=== PATIENT | male | born 1950 | race Caucasian/White ===

== ENCOUNTER → 2019-05-24 | Outpatient (CLI) | payer MEDICARE, OTHER ==
--- NOTE | 2019-05-24 14:08 | Diagnostic Imaging Report ---
INDICATION: Bilateral wrist pain. Status post carpal tunnel surgery 10 years ago. TECHNIQUE: 2 views of the bilateral wrists CORRELATION STUDY: None FINDINGS: No acute bony abnormality or dixie dislocation of either wrist. There is rather advanced degenerative changes through the bilateral wrists. This includes narrowing at the radial carpal row right greater than left. There is also slight prominent appearance about the scaphoid lunate interval of the right wrist. Ossification at the level of the triangular fibrocartilage complex is noted bilaterally. There also appears to be ununited ulnar styloid process fracture of the left wrist. There is narrowing through the scaphoid, trapezium and trapezoid articulations. There is significant degenerative change of the first carpometacarpal articulation joint space narrowing, marginal osteophyte formation and spurlike formation. Slight radial subluxation of the first metacarpal. These findings maybe slightly greater on the left compared to the right. Some soft tissue swelling present. IMPRESSION: 1. Negative examination of the wrist. 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 Dictated by: Dictated on workstation # [id number]
== END ==
LOC: RAD FS 10:13
PROVIDERS: ATTEND Nurse Practitioner
DX: M19.031 Primary osteoarthritis, right wrist (principal); M19.032 Primary osteoarthritis, left wrist; Z98.890 Other specified postprocedural states

== ENCOUNTER → 2019-06-28 | Outpatient (CLI) | payer MEDICARE, OTHER ==
--- NOTE | 2019-06-28 16:56 | Diagnostic Imaging Report ---
INDICATION: Constipation, pain. COMPARISON: None available. TECHNIQUE: Three radiographs of the abdomen dated June 28, 2019. FINDINGS: Pacer leads are partially visualized. Moderate amount of stool is noted throughout the colon, including extending into the rectal vault. No dilated loops of small bowel. No differential air-fluid levels. No free air. 1.4 cm calcification seen overlying the inferior pole of the left kidney. Additional calcific densities are noted overlying the lateral left mid abdomen, lateral to the left renal shadow. Scattered osseous degenerative changes without acute osseous abnormality. IMPRESSION: Moderate stool throughout the colon, which may relate to constipation. 1.4 cm calcification overlying the left renal shadow favored to relate to a renal calculus. Additional calcifications overlying the left mid abdomen which may relate to enteric contents versus vascular calcifications. Dictated by: Dictated on workstation # [id number]
== END ==
LOC: RAD FS 16:34
PROVIDERS: ATTEND Nurse Practitioner Family
DX: K59.09 Other constipation (principal); R10.9 Unspecified abdominal pain
CPT/HCPCS: 74018

== ENCOUNTER → 2019-11-12 | Outpatient (CLI) | payer MEDICARE, OTHER ==
--- NOTE | 2019-11-12 18:07 | Diagnostic Imaging Report ---
INDICATION: Foot pain. FINDINGS: Swelling and some subcutaneous edema about the forefoot are present. No radiopaque foreign body. No abnormal periosteal reaction. No fracture or dislocation. There is a large plantar calcaneal spur. IMPRESSION: Some plantar soft tissue swelling and likely subcutaneous edema. Plantar calcaneal spurring. No acute bony abnormality. Dictated by: Dictated on workstation # [id number]
== END ==
LOC: RAD FS 14:35
PROVIDERS: ATTEND Nurse Practitioner
DX: M76.822 Posterior tibial tendinitis, left leg (principal); M77.32 Calcaneal spur, left foot
CPT/HCPCS: 73630

== ENCOUNTER → 2019-12-05 | Outpatient (CLI) | payer MEDICARE, OTHER ==
[2019-12-05 12:21] LABS: HEMATOCRIT 44 % (40-54); HEMOGLOBIN 14.8 G/DL (13.3-17.7); MEAN CORPUSCULAR HEMOGLOBIN 28 PG (25-34); MEAN CORPUSCULAR VOLUME 84 FL (80-99); WHITE BLOOD COUNT 12.5 10^3/uL (4.3-11.0)
[2019-12-05 12:22] LABS: BASOPHILS % (AUTO) 0 % (0-10); EOSINOPHILS # (AUTO) 0.1 10^3/uL (0.0-0.3); EOSINOPHILS % (AUTO) 1 % (0-10); LYMPHOCYTES # (AUTO) 1.7 X 10^3 (1.0-4.0); LYMPHOCYTES % (AUTO) 14 % (12-44); MEAN CORPUSCULAR HGB CONC 34 G/DL (32-36); MEAN PLATELET VOLUME 8.9 FL (7.4-10.4); MONOCYTES % (AUTO) 8 % (0-12); NEUTROPHILS # (AUTO) 9.6 X 10^3 (1.8-7.8); NEUTROPHILS % (AUTO) 77 % (42-75); PLATELET COUNT 250 10^3/uL (130-400); RED CELL DISTRIBUTION WIDTH 13.2 % (10.0-14.5)
[2019-12-05 12:50] LABS: ALKALINE PHOSPHATASE 118 U/L (40-136); BILIRUBIN,TOTAL 1.2 MG/DL (0.1-1.0); BUN/CREATININE RATIO 11; CALCIUM 8.8 MG/DL (8.5-10.1); CARBON DIOXIDE 27 MMOL/L (21-32); CHLORIDE 100 MMOL/L (98-107); CREATININE SERUM 1.11 MG/DL (0.60-1.30); GFR ESTIMATED > 60; GLUCOSE 103 MG/DL (70-105); POTASSIUM 3.2 MMOL/L (3.6-5.0); SODIUM 140 MMOL/L (135-145)
[2019-12-05 12:51] LABS: ALANINE AMINOTRANSFERASE 24 U/L (0-55); ALBUMIN 3.8 GM/DL (3.2-4.5)
--- NOTE | 2019-12-05 16:33 | Diagnostic Imaging Report ---
INDICATION: Chest congestion. FINDINGS: The heart is mildly enlarged. There is no vascular congestion. No edema, pneumonia, effusion, or pneumothorax. IMPRESSION: Mild prominence of the cardiac silhouette but no overt failure pattern, pneumonia, or acute-appearing abnormality. Dictated by: Dictated on workstation # [id number]
== END ==
LOC: RAD FS 11:47
PROVIDERS: ATTEND Nurse Practitioner Family
DX: R19.7 Diarrhea, unspecified (principal); R11.2 Nausea with vomiting, unspecified; R53.83 Other fatigue; R05 Cough; R09.89 Other specified symptoms and signs involving the circulatory and respiratory systems; Z95.5 Presence of coronary angioplasty implant and graft; Z95.0 Presence of cardiac pacemaker
CPT/HCPCS: 36415; 71046; 80053; 83880; 85025

== ENCOUNTER → 2020-03-06 | Outpatient (CLI) | payer MEDICARE, OTHER ==
--- NOTE | 2020-03-06 16:50 | Diagnostic Imaging Report ---
INDICATION: Left shoulder pain. TIME OF EXAM: 02:11 p.m. FINDINGS: Three views of the left shoulder were obtained. Glenohumeral and acromioclavicular alignment is normal. Acromiohumeral space is normal. There are some degenerative changes of the glenohumeral joint. There appears to be some spurring at the humeral head and neck junction. There are also hypertrophic degenerative changes of the acromioclavicular joint with some spurring along the inferior aspect. Postoperative changes are noted as well as suture anchor overlying the proximal humerus. No fracture or dislocation is identified. Pacemaker overlies the left axilla. IMPRESSION: Chronic and postsurgical changes. No acute bony abnormality is detected. Dictated by: Dictated on workstation # [id number]
--- NOTE | 2020-03-06 17:42 | Diagnostic Imaging Report ---
INDICATION: Injury and pain to the left shoulder. TIME OF EXAM: 3:20 PM A single axillary view of the left shoulder was obtained. Glenohumeral alignment is normal. There is no dislocation. Degenerative changes at the glenohumeral joint are again noted. Postsurgical changes with suture anchor overlying the humeral head is noted. IMPRESSION: Chronic changes. No acute feature is detected. Dictated by: Dictated on workstation # [id number]
== END ==
LOC: RAD FS 14:05
PROVIDERS: ATTEND Nurse Practitioner
DX: S46.012A Strain of muscle(s) and tendon(s) of the rotator cuff of left shoulder, initial encounter (principal); Z98.890 Other specified postprocedural states
CPT/HCPCS: 73020; 73030

== ENCOUNTER → 2021-02-16 | Outpatient (CLI) | payer MEDICARE, OTHER ==
[2021-02-16 12:26] LABS: BASOPHILS % (AUTO) 1 % (0-10); EOSINOPHILS % (AUTO) 2 % (0-10); HEMATOCRIT 41 % (40-54); HEMOGLOBIN 13.9 G/DL (13.3-17.7); LYMPHOCYTES % (AUTO) 26 % (12-44); MEAN CORPUSCULAR HEMOGLOBIN 29 PG (25-34); MEAN CORPUSCULAR HGB CONC 34 G/DL (32-36); MEAN CORPUSCULAR VOLUME 84 FL (80-99); MEAN PLATELET VOLUME 8.9 FL (7.4-10.4); MONOCYTES % (AUTO) 13 % (0-12); NEUTROPHILS % (AUTO) 59 % (42-75); PLATELET COUNT 272 10^3/uL (130-400); WHITE BLOOD COUNT 8.9 10^3/uL (4.3-11.0)
[2021-02-16 12:27] LABS: EOSINOPHILS # (AUTO) 0.2 10^3/uL (0.0-0.3); LYMPHOCYTES # (AUTO) 2.3 X 10^3 (1.0-4.0); MONOCYTES # (AUTO) 1.1 X 10^3 (0.0-1.0); NEUTROPHILS # (AUTO) 5.2 X 10^3 (1.8-7.8)
--- NOTE | 2021-02-16 12:48 | Diagnostic Imaging Report ---
Right foot at 12:25. INDICATION: Great toe pain 3 views were obtained. There are no prior studies available for comparison. There is no fracture, dislocation or acute bony abnormality evident. There is mild degenerative disease involving the phalanges and perhaps moderate degenerative disease of the 1st metatarsophalangeal joint. There is also mild soft tissue edema along the medial aspect of the head of the 1st metatarsal phalangeal joint. There is no sign of bony destruction in this area to suggest gouty arthritis. Even so, clinical followup regarding patient's uric acid levels would be recommended. The Lisfranc joint seems well maintained. There is a prominent calcaneal spur. IMPRESSION: 1. There is no evidence for ay acute bony abnormality. 2. There are mild degenerative changes involving the forefoot and there is moderate degenerative disease of the 1st metatarsophalangeal joint. There is also mild soft tissue edema along the medial aspect of the joint. Considerations as above. Dictated by: Dictated on workstation # [id number]
== END ==
LOC: LAB FS 12:12
PROVIDERS: ATTEND Nurse Practitioner Family
DX: M19.071 Primary osteoarthritis, right ankle and foot (principal); L53.9 Erythematous condition, unspecified
CPT/HCPCS: 36415; 73630; 84550; 85025

== ENCOUNTER → 2021-04-17 | Outpatient (CLI) | payer MEDICARE, OTHER ==
[2021-04-17 12:18] LABS: ALKALINE PHOSPHATASE 104 U/L (40-136); BILIRUBIN,TOTAL 0.4 MG/DL (0.1-1.0); BUN/CREATININE RATIO 14; CALCIUM 9.3 MG/DL (8.5-10.1); CARBON DIOXIDE 26 MMOL/L (21-32); CHLORIDE 104 MMOL/L (98-107); GFR ESTIMATED > 60; GLUCOSE 103 MG/DL (70-105); POTASSIUM 4.4 MMOL/L (3.6-5.0); SODIUM 137 MMOL/L (135-145)
[2021-04-17 12:19] LABS: ALANINE AMINOTRANSFERASE 24 U/L (0-55); ALBUMIN 3.9 GM/DL (3.2-4.5); TOTAL PROTEIN 6.7 GM/DL (6.4-8.2)
--- NOTE | 2021-04-17 12:28 | Diagnostic Imaging Report ---
INDICATION: Chest pain. TIME OF EXAM: 11:59 AM Correlation is made with prior chest 12/05/2019. FINDINGS: Heart size normal. Cardiac defibrillator is in place. There is no infiltrate. The pulmonary vascularity is normal. No effusion or pneumothorax is seen. IMPRESSION: No acute cardiopulmonary process is detected. Dictated by: Dictated on workstation # [id number]
== END ==
LOC: LAB FS 11:39
PROVIDERS: ATTEND Nurse Practitioner Family
DX: I25.10 Atherosclerotic heart disease of native coronary artery without angina pectoris (principal); M79.89 Other specified soft tissue disorders; Z87.39 Personal history of other diseases of the musculoskeletal system and connective tissue
CPT/HCPCS: 36415; 71046; 80053; 83880; 84550

== ENCOUNTER → 2021-05-21 | Outpatient (CLI) | payer MEDICARE, OTHER ==
--- NOTE | 2021-05-21 15:14 | Diagnostic Imaging Report ---
INDICATION: Right wrist pain. TIME OF EXAM: 2:45 PM. FINDINGS: Three views of the right wrist were obtained. The distal radius and ulna are intact. There is widening of the scapholunate space, consistent with scapholunate dissociation. There appears to be very slight proximal right migration of the capitate, consistent with scapholunate advanced collapse. No fractures are seen. The metacarpals are intact. 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 No acute bony abnormality is detected. Dictated by: Dictated on workstation # [id number]
== END ==
LOC: RAD FS 14:32
PROVIDERS: ATTEND Allergy & Immunology
DX: M25.531 Pain in right wrist (principal)
CPT/HCPCS: 73110

== ENCOUNTER → 2021-08-17 | Outpatient (CLI) | payer MEDICARE, OTHER ==
--- NOTE | 2021-08-17 11:15 | Diagnostic Imaging Report ---
INDICATION: Neck pain. COMPARISON: None. TECHNIQUE: Frontal, lateral, and open-mouth radiographic views of the cervical spine were obtained. FINDINGS: The cervical spine is seen down to the C7-T1 level on the lateral view. Evaluation of static alignment shows moderate reversal of normal lordotic curvature at epicentered at the C5 level. There is slight grade 1 retrolisthesis at C5-C6. There is no evidence of jumped facets. Vertebral body heights are maintained. There is no acute fracture. There are moderate multilevel degenerative changes consisting of intervertebral disc height loss as well as anterior and posterior disc/osteophyte complex formations. These changes extend essentially throughout the length of the cervical spine. Open-mouth view shows normal C1-C2 alignment. Included portions of the lung apices are clear. IMPRESSION: 1. No acute fracture or dislocation in the cervical spine. 2. Moderate to advanced multilevel degenerative changes. Dictated by: Dictated on workstation # [id number]
--- NOTE | 2021-08-17 11:21 | Diagnostic Imaging Report ---
INDICATION: Shoulder pain. History of previous rotator cuff tear. COMPARISON: 03/06/2020. FINDINGS: Multiple radiographic views of the left shoulder were obtained. A metallic orthopedic anchor is identified projecting over the lateral margins of the humeral head. A left-sided AICD is also noted. No unexpected radiopaque foreign bodies are identified. Osseous structures are intact. There is no acute fracture. There is moderate narrowing of the acromiohumeral and glenohumeral joint spaces. Glenoid and humeral head osteophyte formations are also noted. The included portions of the left hemithorax are clear. IMPRESSION: 1. No acute fracture or dislocation of the left shoulder. 2. Narrowing of the acromiohumeral joint space. Findings do raise suspicion for chronic rotator cuff tear. 3. Moderate osteoarthritic changes of the glenohumeral joint space as well. Dictated by: Dictated on workstation # [id number]
== END ==
LOC: RAD FS 10:37
PROVIDERS: ATTEND Nurse Practitioner
DX: M19.012 Primary osteoarthritis, left shoulder (principal); M47.812 Spondylosis without myelopathy or radiculopathy, cervical region
CPT/HCPCS: 72040; 73030

== ENCOUNTER 2021-09-04 11:07 | Emergency (ER) | payer OTHER, MEDICARE ==
[~2021-09-04] VITALS: Ht 172 cm; Wt 100.0 kg
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
[2021-09-04 13:20] VITALS: BP 142/72
[2021-09-04] MEDS ORDERED: BACL10TA PO (13:28)
[2021-09-04] MEDS ORDERED: ACHD5005 PO (13:28)
--- OUTSIDE RECORDS SUMMARY | 2021-09-07 11:11 | XMS REPORT | Clinical Summary ---
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 Active atorvastatin (LIPITOR) 40 Take 40 mg by 0 MG tablet mouth daily. Active fluticasone (FLONASE) 50 Use 1 spray 0 mcg/actuation nasal spray in each nostril daily. Active triazolam (HALCION) 0.25 Take 0.25 mg 0 MG tablet by mouth nightly as needed. Active isosorbide mononitrate Take 120 mg 0 (IMDUR) 120 MG 24 hr by mouth tablet daily. Active esomeprazole (NEXIUM) 40 Take 40 mg by 0 MG capsule mouth every morning before breakfast. Active nitroglycerin (NITROSTAT) Dissolve 0.4 0 0.4 MG SL tablet mg under the tongue every 5 (five) minutes as needed for chest pain. May repeat for a total of 3 doses. Active HYDROcodone-acetaminophen Take 1 tablet 0 (NORCO) 5-325 mg per by mouth tablet every 6 (six) hours as needed for pain. Active buPROPion (WELLBUTRIN SR) Take 150 mg 0 100 mg SR 12 hr tablet by mouth 2 (two) times a day. Active potassium 99 mg Tab Take by mouth 0 daily. Active furosemide (LASIX) 20 MG Take 20 mg by 0 tablet mouth 2 (two) times a day. Active folic acid-vit B6-vit B12 Take 1 tablet 0 (FOLBEE) 2.5-25-1 mg per by mouth tablet daily. Active aspirin 81 MG EC tablet Take 81 mg by 0 mouth daily. Active traMADol (ULTRAM) 50 mg Take 50 mg by 0 tablet mouth every 6 (six) hours as needed for pain. Active hydroCHLOROthiazide Take 25 mg by 0 (HYDRODIURIL) 25 MG mouth daily. tablet Active rivaroxaban (XARELTO) 20 Take 1 tablet 90 tablet 1 mg tablet (20 mg total) 9 by mouth daily with dinner. Active metoprolol succinate daily. 10 (TOPROL-XL) 25 MG 24 hr 9 tablet Active triamcinolone (KENALOG) as needed. 0 0.1 % cream 9 Active flecainide (TAMBOCOR) 100 Take 100 mg 0 MG tablet by mouth 2 (two) times a day. Active Problems Problem Noted Date Persistent atrial fibrillation 12/19/2018 Overview: Formatting of this note might be differ ent from the original. Added automatically from request for alexander cota [id number] Atrial flutter 10/30/2018 S/P ablation of atrial fibrillation 10/09/2018 Atrial fibrillation 08/22/2018 Overview: Formatting of this note might be differ ent from the original. Added automatically from request for alexander cota [id number] RBBB (right bundle branch block) 08/22/2018 DVT (deep venous thrombosis) 05/17/2015 Overview: Formatting of this note might be differ ent from the original. Right leg unprovoked S/P coronary artery stent placement 10/17/2005 ICD (implantable cardioverter-defibrillator) in place 04/11/1998 Overview: Formatting of this note might be differ ent from the original. Idiopathic VT-Generator replacement [employer] Dual Essential hypertension GERD (gastroesophageal reflux disease) Mixed hyperlipidemia care home current use of anticoagulant therapy care home current use of antiarrhythmic drug Coronary atherosclerosis of [place] artery Overview: Formatting of this note might be differ ent from the original. Nonobstructive Obesity (BMI 30.0-34.9) Paroxysmal SVT (supraventricular tachyc ardia) Resolved Problems Problem Noted Date Resolved Date Status post radiofrequency ablation operation for arrhythmi a 10/09/2018 10/25/2018 RBBB 08/22/2018 10/25/2018 ICD (implantable cardioverter-defibrillator) in place 10/25/2018 Overview: Formatting of this note might be differ ent from the original. Generator replacement 03/01/2018 care home current use of antiarrhythmic drug 2018 Overview: Formatting of this note might be differ ent from the original. Tikosyn care home current use of anticoagulant therapy 06/2019 Overview: Formatting of this note might be differ ent from the original. Xarelto Family History Medical History Relation Name Comments Hypertension Father Diabetes Mother Hypertension Sister Relation Name Status Comments Father Mother Sister Social History Date Tobacco Use Types Packs/Day Years Used Never Smoker Smokeless Tobacco: Never Used Comments Alcohol Use Standard Drinks/Week No 0 (1 standard drink = 0.6 o z pure alcohol) Sex Assigned at Date Recorded Not on file Last Filed Vital Signs Reading Time Taken Comments Vital Sign 119/92 12/11/2018 9:15 AM [facility] Blood Pressure 62 12/11/2018 9:15 AM [facility] Pulse 35.7 C (96.2 F) 12/11/2018 8:37 AM [facility] Temperature 11 12/11/2018 9:15 AM [facility] Respiratory Rate 94% 12/11/2018 9:15 AM [facility] Oxygen Saturation - - Inhaled Oxygen Concentration 97.8 kg (215 lb 9.8 oz) 12/11/2018 7:16 AM [facility] Weight 172.7 cm (5' 7.99") 12/11/2018 7:16 AM [facility] Height 32.79 12/11/2018 7:16 AM [facility] Body Mass Index Plan of Treatment Health Maintenance Due Date Last Done Comments Hepatitis C Screen 1950 Medicare Annual Wellness 1950 Td/Tdap# 1950 COVID-19 Vaccine (1) 1961 Colorectal Screening via 1999 Colonoscopy Zoster Vaccine# (1 of 2) 1999 Advance Care Plan 2014 Conversation Needed # Depression Screening 2014 PHQ-9 # Fall Risk Assessment # 12/11/2019 12/11/2018 Influenza Vaccine (#1) 2021 07/10/2019, 07/15/2018, 07/21/2017, Additional history exists Pneumococcal Vaccine: 65+ Completed 07/10/2019, Years 07/24/2018, 07/21/2017, Additional history exists Implants Device Identifier Shelf Expiration Date Model / Serial / L ot Implanted Type Area Manufactur er [id number] / [id number] / Icd-03/01/2018 ICD Implanted: 03/01/2018 (Quantity not on file) [id number] EVERA XT / [id number] / [id number] Evera Xt ICD MEDTRONIC [id number] Implanted: 03/01/2018 (Quantity not on file) [id number] / [id number] / Lead-04/11/1998 Lead Implanted: 04/11/1998 (Quantity not on file) [id number] / [id number] / Lead-04/11/1998 Lead Implanted: 04/11/1998 (Quantity not on file) 0125 ENDOTAK DSP / [id number] / [id number] Endotak Dsp [id number] [employer] [id number] / [id number] / [id number] [employer] Results Not on filefrom Last 3 Months Insurance Type Payer Benefit Subscriber ID Effective Phone Address Plan / Dates Group Medicare MEDICARE MEDICARE [id number] 2002-P [phone] WPS GHA PART A B resent ATTN CLAIMS DEPT [address] [place] [address] COMMERCIAL-NONCONTRACTED MISC [id number] 2018- [address] Present [id number] [place] [id number] am[place] (Home) [place], [place] [address] Eric Rueda Personal/F Self 1950 [address] [place] (Home) [place], [place] [address] rEic Rueda Personal/F Self [address] [place] (Home) [place], [place] [address] Advance Directives For more information, please contact: [phone] 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
== END 2021-09-04 13:31 | disposition home or self-care (01) ==
LOC: EDUNIT# 11:07 → ER FS 11:08
DX: S16.1XXA Strain of muscle, fascia and tendon at neck level, initial encounter (principal); S39.012A Strain of muscle, fascia and tendon of lower back, initial encounter; S40.012A Contusion of left shoulder, initial encounter; M25.561 Pain in right knee; V89.2XXA Person injured in unspecified motor-vehicle accident, traffic, initial encounter
CPT/HCPCS: 72125; 72128; 72131; 73000; 73562

== ENCOUNTER → 2022-04-06 | Outpatient (CLI) | payer MEDICARE, OTHER ==
[~2022-04-06] MED LIST: ACHD5005 PO; BACL10TA PO
--- NOTE | 2022-04-06 12:30 | Diagnostic Imaging Report ---
INDICATION: Right leg pain. TIME OF EXAM: 11:23 AM. FINDINGS: A single view of the pelvis demonstrates the femoroacetabular alignment to be normal bilaterally. Both femoral heads and necks appear to be intact. The rami are intact. No fractures are seen. IMPRESSION: No acute bony abnormality is detected. Dictated by: Dictated on workstation # [id number]
--- NOTE | 2022-04-06 12:31 | Diagnostic Imaging Report ---
INDICATION: Low back pain. TIME OF EXAM: 11:23 AM FINDINGS: Curvature of the lumbar spine is normal. There is grade 1 spondylolisthesis of L4 on L5. Vertebral body heights are maintained. No acute compression fracture is identified. There is multilevel degenerative disc disease with variable disc space narrowing and marginal spurring. Multilevel facet arthropathies noted. Calcific densities in the left abdomen are noted. These overlie the left renal shadow and renal calculi cannot be entirely excluded. IMPRESSION: 1. Lumbar spondylosis. No acute bony abnormality is detected. 2. Left abdominal calcifications which could be renal in origin. Dictated by: Dictated on workstation # [id number]
== END ==
LOC: RAD FS 11:10
PROVIDERS: ATTEND Nurse Practitioner Family
DX: M47.816 Spondylosis without myelopathy or radiculopathy, lumbar region (principal)
CPT/HCPCS: 72100; 72170

== ENCOUNTER 2022-10-16 21:18 | Emergency (ER) | payer MEDICARE, OTHER ==
[~2022-10-16] VITALS: Ht 172.7 cm; Wt 102.9 kg
--- NOTE | 2022-10-16 21:32 | ED Upper Extremity ---
General Stated Complaint: LT ELBOW/WRIST INJURY Exam Limitations: language barrier History of Present Illness Date Seen by Provider: Oct 16, 2022 Time Seen by Provider: 21:32 Initial Comments 72-year-old male is here with complaints of left elbow and left wrist pain which began yesterday after he was pushing and putting together a stove. Pt felt a pop in his left elbow. Denies falls, injuries. Allergies and Home Medications Allergies Coded Allergies: No Known Drug Allergies (Unverified , 09/04/21) Patient Home Medication List Home Medication List Reviewed: Yes Baclofen (Baclofen) 10 Mg Tablet, 10 MG PO BID PRN for MUSCLE SPASMS Prescribed by: LYNN CALDERON on 09/04/21 1328 Hydrocodone/Acetaminophen (Hydrocodone-Acetamin 5-325 mg) 1 Each Tablet, 1 TAB PO Q8H PRN for PAIN-SEVERE (8-10) Prescribed by: LYNN CALDERON on 09/04/21 1328 Review of Systems Constitutional: no symptoms reported EENTM: no symptoms reported Respiratory: no symptoms reported Cardiovascular: no symptoms reported Gastrointestinal: no symptoms reported Genitourinary: no symptoms reported Musculoskeletal: joint pain, joint swelling Skin: no symptoms reported Psychiatric/Neurological: No Symptoms Reported Past Kkrowfo-Hylhyk-Uyoyxl Hx Immunizations Up To Date First/Initial COVID19 Vaccinat: January COVID19 Vaccination Isaac: FEBRUARY Past Medical History Surgeries: Yes Orthopedic Physical Exam Vital Signs Vital Signs - First Documented 10/16/22 21:26 Temp 36.7 Pulse 86 Resp 16 B/P (MAP) 146/88 (107) Pulse Ox 98 O2 Delivery Room Air Capillary Refill : Height, Weight, BMI Height: '" Weight: lbs. oz. kg; 33.00 BMI Method: General Appearance: WD/WN, no apparent distress HEENT: PERRL/EOMI Neck: non-tender, full range of motion, supple, normal inspection Cardiovascular: regular rate, rhythm Respiratory: chest non-tender, lungs clear Gastrointestinal: normal bowel sounds, non tender, soft Back: normal inspection, no vertebral tenderness Shoulder: normal inspection Elbow/Forearm: Left, bone tenderness (Over the lateral epicondyle. N/V bundle intact, no deformity.), limited ROM (Due to pain), pain, swelling Wrist: Yes normal inspection, Yes non-tender, Yes no evidence of injury, Yes abrasions, Yes limited ROM (Due to pain and swelling), Yes pain Hand: Left Neurologic/Tendon: normal sensation, normal motor functions, normal tendon functions, responds to pain Neurologic/Psychiatric: alert, oriented x 3 Skin: normal color Progress/Results/Core Measures Results/Orders My Orders Orders - THA VENTURA MD Elbow 3 View Left (10/16/22 21:31) Wrist 3 View Left (10/16/22 21:31) Vital Signs/I&O 10/16/22 21:26 Temp 36.7 Pulse 86 Resp 16 B/P (MAP) 146/88 (107) Pulse Ox 98 O2 Delivery Room Air Progress Progress Note : Progress Note 1. LEFT LATERAL EPICONDYLITIS: - XR LEFT ELBOW: see report - Sling given - Advised heat application - Tylenol advised since pt is unable to take NSAID due to his cardiac medications, and also over the counter lidoderm patches. - Follow up with Ortho and PCP for follow up in 3 to 7 days - Avoid heavy lifting for a few days 2. LEFT WRIST STRAIN: - XR LEFT WRIST: no fractures - Left wrist splint given for support Diagnostic Imaging Diagonstic Imaging: Xray Plain Films/CT/US/NM/MRI: elbow, other Comments [facility] [place], [place] NAME: GWENDOLYN JOY [facility] REC#: [id number] PT STATUS: REG ER : 1950 PHYSICIAN: THA VENTURA MD ADMIT DATE: 10/16/22/ER FS Draft Date of Exam:10/16/22 ELBOW 3 VIEW LEFT INDICATION: Pain, injury. COMPARISON: None available. TECHNIQUE: Three radiographs of the left elbow dated October 16, 2022. FINDINGS: Examination is limited secondary to positioning. In particular, the lateral radiograph is significantly rotated. No definite acute fracture or dislocation. Joint space narrowing is present with associated osteophyte formation. Additional calcifications are noted associated with the lateral epicondyle. Potential small elbow joint effusion. No suspicious radiopaque foreign body. Soft tissue swelling about the left elbow. IMPRESSION: Limited examination demonstrating degenerative changes without definite acute fracture. Potential small elbow joint effusion. Calcifications adjacent to the lateral epicondyle, felt to relate to sequelae of lateral epicondylitis. If there remains clinical concern for the left elbow, repeat examination with improved positioning would be recommended, particularly given potential small joint effusion. Dictated on workstation # [id number] Dict: 10/16/222143 Trans: 10/16/222148 [facility] [id number] Interpreted by: KIMBERLYN BELL MD Electronically signed by: [facility] [place] [place] NAME: GWENDOLYN JOY [facility] REC#: [id number] PT STATUS: REG ER : 1950 PHYSICIAN: THA VENTURA MD ADMIT DATE: 10/16/22/ER FS Draft Date of Exam:10/16/22 WRIST 3 VIEW LEFT INDICATION: Limited range of motion status post injury. COMPARISON: None. FINDINGS: Multiple radiographic views of the left wrist were obtained and show old ulnar styloid fracture, but no acute appearing osseous abnormality. There is no evidence of acute fracture. Advanced osteophytic changes are noted at the 1st carpometacarpal joint space. Joint spaces are otherwise maintained. No unexpected radiopaque foreign bodies are seen. IMPRESSION: No acute fracture or dislocation in the left wrist. Dictated on workstation # [id number] Dict: 10/16/222144 Trans: 10/16/222146 [facility] [id number] Interpreted by: MANFRED WEST MD Electronically signed by: Departure Impression Primary Impression: Left lateral epicondylitis Additional Impression: Strain of left wrist Qualified Codes: S66.912A - Strain of unspecified muscle, fascia and tendon at wrist and hand level, left hand, initial encounter Disposition: 01 HOME, SELF-CARE Condition: Improved Departure-Patient Inst. Referrals: AMINA MUNOZ APRN (PCP) Primary Care Physician [facility] (Family) Primary Care Physician JEANETH JACINTO MD Patient Instructions: Lateral Epicondylitis Exercises, How to Use a Shoulder Sling, Lateral Epicondylitis, Muscle Strain ED Add. Discharge Instructions: - Sling given - Advised heat application - Tylenol advised since pt is unable to take NSAID due to his cardiac medications, and also over the counter lidoderm patches. - Follow up with Ortho and PCP for follow up in 3 to 7 days - Avoid heavy lifting for a few days - Left wrist splint given for support THA VENTURA MD Oct 16, 2022 21:32
[2022-10-16] MEDS ORDERED: APAP 325 MG/10.15 ML LIQ (TYLENOL) UDC PO ONE (21:45)
--- NOTE | 2022-10-16 21:48 | Diagnostic Imaging Report ---
INDICATION: Limited range of motion status post injury. COMPARISON: None. FINDINGS: Multiple radiographic views of the left wrist were obtained and show old ulnar styloid fracture, but no acute appearing osseous abnormality. There is no evidence of acute fracture. Advanced osteophytic changes are noted at the 1st carpometacarpal joint space. Joint spaces are otherwise maintained. No unexpected radiopaque foreign bodies are seen. IMPRESSION: No acute fracture or dislocation in the left wrist. Dictated by: Dictated on workstation # [id number]
--- NOTE | 2022-10-16 21:49 | Diagnostic Imaging Report ---
INDICATION: Pain, injury. COMPARISON: None available. TECHNIQUE: Three radiographs of the left elbow dated October 16, 2022. FINDINGS: Examination is limited secondary to positioning. In particular, the lateral radiograph is significantly rotated. No definite acute fracture or dislocation. Joint space narrowing is present with associated osteophyte formation. Additional calcifications are noted associated with the lateral epicondyle. Potential small elbow joint effusion. No suspicious radiopaque foreign body. Soft tissue swelling about the left elbow. IMPRESSION: Limited examination demonstrating degenerative changes without definite acute fracture. Potential small elbow joint effusion. Calcifications adjacent to the lateral epicondyle, felt to relate to sequelae of lateral epicondylitis. If there remains clinical concern for the left elbow, repeat examination with improved positioning would be recommended, particularly given potential small joint effusion. Dictated by: Dictated on workstation # [id number]
[2022-10-16 22:36] VITALS: BP 146/88
== END 2022-10-16 22:36 | disposition home or self-care (01) ==
LOC: EDUNIT# 21:18 → ER FS 21:20
DX: S66.912A Strain of unspecified muscle, fascia and tendon at wrist and hand level, left hand, initial encounter (principal); M77.12 Lateral epicondylitis, left elbow; X50.0XXA Overexertion from strenuous movement or load, initial encounter
CPT/HCPCS: 73080; 73110

== ENCOUNTER 2022-10-23 13:44 | Emergency (ER) | payer MEDICARE, OTHER ==
[~2022-10-23] VITALS: Ht 172.7 cm; Wt 101.3 kg
[2022-10-23 13:48] VITALS: BP 112/85
[2022-10-23] MEDS ORDERED: CEFEPIME INJECTION 1,000 MG in NS (IVPB) 50 ML IV ONE (14:00)
[2022-10-23] MEDS ORDERED: NS IV 1000 ML 1,000 ML IV SCH (14:00)
--- NOTE | 2022-10-23 14:13 | ED Abdominal Pain ---
General Chief Complaint: Rect Problems Stated Complaint: RECTAL PAIN Nursing Triage Note: Patient reports he has been having severe rectal pain for several days. He states his looked at his rectum and thought he might have a tear in his rectum. Source of Information: Patient Exam Limitations: No Limitations History of Present Illness Date Seen by Provider: Oct 23, 2022 Time Seen by Provider: 13:45 Initial Comments Patient is a 72-year-old male who presents with rectal pain. He reports perirectal fullness with severe rectal pain for the past few days. Patient states he felt a bump or abscess break open. He was evaluated 2 days ago by his PCP and diagnosed with rectal tear and placed on antibiotics and stool softeners which she has taken.. He states that his pain is not improved. Denies bloody stools dark tarry stools but does have history of hemorrhoids. No fever chills or sweats. No other acute symptoms or complaints. Timing/Duration: 3-4 Days Severity/Quality: Other Location: Other Radiation: Other Activities at Onset: Other Modifying Factors: Improves With Other Associated Symptoms: Other Allergies and Home Medications Allergies Coded Allergies: No Known Drug Allergies (Unverified , 09/04/21) Patient Home Medication List Home Medication List Reviewed: Yes Baclofen (Baclofen) 10 Mg Tablet, 10 MG PO BID PRN for MUSCLE SPASMS Prescribed by: LYNN CALDERON on 09/04/21 1328 Hydrocodone/Acetaminophen (Hydrocodone-Acetamin 5-325 mg) 1 Each Tablet, 1 TAB PO Q8H PRN for PAIN-SEVERE (8-10) Prescribed by: LYNN CALDERON on 09/04/21 1328 Review of Systems Review of Systems Constitutional: see HPI EENTM: See HPI Respiratory: See HPI Cardiovascular: See HPI Gastrointestinal: See HPI Genitourinary: See HPI Musculoskeletal: see HPI Skin: see HPI Psychiatric/Neurological: See HPI Endocrine: See HPI Hematologic/Lymphatic: See HPI All Other Systems Reviewed Negative Unless Noted: No Past Xxvohmm-Cjfhvn-Ugypve Hx Patient Social History Tobacco Use?: No Immunizations Up To Date First/Initial COVID19 Vaccinat: JANUARY Second COVID19 Vaccination Isaac: FEBRUARY Past Medical History Surgeries: Yes Orthopedic Physical Exam Vital Signs Vital Signs - First Documented 10/23/22 13:48 Temp 36.5 Pulse 89 Resp 18 B/P (MAP) 112/85 (94) Pulse Ox 97 O2 Delivery Room Air Capillary Refill : Less Than 3 Seconds Height/Weight/BMI Height: '" Weight: lbs. oz. kg; 33.00 BMI Method: General Appearance: WD/WN HEENT: PERRL/EOMI Respiratory: lungs clear, normal breath sounds, no respiratory distress Genital/Rectal: other (Perirectal abscess/contains fistula. No fluctuance active drainage or cellulitis) Progress/Results/Core Measures Results/Orders My Orders Orders - WILL JACOBSON DO Hydrocodone/Apap 5/325 Tablet (Lortab 5 (10/23/22 14:15) Vital Signs/I&O 10/23/22 13:48 Temp 36.5 Pulse 89 Resp 18 B/P (MAP) 112/85 (94) Pulse Ox 97 O2 Delivery Room Air Blood Pressure Mean: 94 Departure Communication (Admissions) Patient with rectal pain with likely draining cutaneous abscess/fistula. No systemic symptoms. Pain addressed and improved in the emergency department. No labs or any imaging studies indicated at this time. Recommendations will be continued supportive care with general surgical referral. Impression Primary Impression: Fistula, perirectal Disposition: 01 HOME, SELF-CARE Condition: Stable Departure-Patient Inst. Decision time for Depature: 14:12 Referrals: AMINA MUNOZ APRN (PCP) Primary Care Physician WALKER GUZMAN DO Patient Instructions: Anal Abscess and Fistula Add. Discharge Instructions: You were evaluated in the emergency department for rectal pain. Your symptoms are consistent with a perirectal fistula with ruptured abscess. Please continue with sitz bath's, stool softeners and take ibuprofen and hydrocodone for pain. You may discontinue antibiotics prescribed earlier this week. Follow-up with Dr. Guzman on-call for general surgery. All discharge instructions reviewed with patient and/or family. Voiced understanding. WILL JACOBSON DO Oct 23, 2022 14:12
[2022-10-23] MEDS ORDERED: HYDROcodone/APAP 5 MG/325 MG (LORTAB) TAB PO ONE (14:15)
[2022-10-23] MEDS ORDERED: ACHD5005 PO ×3 (15:20→15:22)
== END 2022-10-23 15:22 | disposition home or self-care (01) ==
LOC: EDUNIT# 13:44 → ER FS 13:46
DX: K60.4 Rectal fistula (principal)
CPT/HCPCS: 99283

== ENCOUNTER 2023-01-05 09:09 | Emergency (ER) | payer MEDICARE ==
[~2023-01-05] VITALS: Ht 172.7 cm; Wt 105.4 kg
--- NOTE | 2023-01-05 09:39 | ED Cough/URI ---
General Chief Complaint: Respiratory Problems Stated Complaint: CHEST CONGESTION Source: patient, spouse History of Present Illness Date Seen by Provider: Jan 05, 2023 Time Seen by Provider: 09:14 Initial Comments 72-year-old male presenting with complaints of continued cough and occasional shortness of breath. He has had symptoms for over 6 days now. He was seen Tuesday through the urgent care and started on Zithromax, amoxicillin and prednisone. He was seen today in the clinic and they felt that he had a lot of congestion in his lungs and wanted him evaluated in the emergency department. The states that nurse practitioner Daniel wanted the patient to get a chest x-ray. He does use albuterol inhalers chronically but denies a history of COPD. He also states on Tuesday night he was having leg cramps that woke him up and he felt like he was dry. He does take 2 diuretic medications of hydrochlorothiazide and furosemide. He states that he drink more water and he felt like the Mucinex was drying him out so he stopped it. Since he was drinking more water the cramping resolved. He reports that he had a low low- grade temperature of around 99 F when he checked into the clinic. Timing/Duration: week Severity/Quality: productive cough (occasionally productive if he hacks hard enough) Prior Episodes/Possible Cause: occasional episodes Modifying Factors: Worse With Coughing Associated Symptoms: cough, fever/chills (subjective low grade fever), nasal drainage, shortness of breath Allergies and Home Medications Allergies Coded Allergies: No Known Drug Allergies (Unverified , 09/04/21) Patient Home Medication List Home Medication List Reviewed: Yes Baclofen (Baclofen) 10 Mg Tablet, 10 MG PO BID PRN for MUSCLE SPASMS Prescribed by: LYNN CALDERON on 09/04/21 1328 Guaifenesin (Mucinex) 1,200 Mg Tab.er.12h, 1,200 MG PO Q12H Prescribed by: LYNN CALDERON on 01/05/23 1022 Hydrocodone/Acetaminophen (Hydrocodone-Acetamin 5-325 mg) 1 Each Tablet, 1 TAB PO Q8H PRN for PAIN-SEVERE (8-10) Prescribed by: LYNN CALDERON on 09/04/21 1328 Hydrocodone/Acetaminophen (Hydrocodone-Acetamin 5-325 mg) 5 Mg-325 Mg Tablet, 1 TAB PO Q4H PRN for PAIN-MODERATE (5-7) Prescribed by: WILL JACOBSON on 12/02/22 1352 Hydrocodone/Acetaminophen (Hydrocodone-Acetamin 5-325 mg) 5 Mg-325 Mg Tablet, 1 TAB PO Q4H PRN for PAIN-MODERATE (5-7) Prescribed by: WILL JACOBSON on 10/23/22 1523 Review of Systems Review of Systems Constitutional: see HPI EENTM: nose congestion Respiratory: see HPI Cardiovascular: No chest pain Gastrointestinal: No nausea, No vomiting Genitourinary: no symptoms reported Musculoskeletal: muscle cramps (tuesday night) Skin: no symptoms reported Psychiatric/Neurological: No Symptoms Reported Past Sdoedxi-Pxzrki-Uferuf Hx Patient Social History Tobacco Use?: No Use of E-Cig and/or Vaping dev: No Substance use?: No Immunizations Up To Date First/Initial COVID19 Vaccinat: January COVID19 Vaccination Isaac: February COVID19 Vaccination Date: JULY Past Medical History Surgery/Hospitalization HX: pacemaker/defibrillator, Hypertension, Surgeries: Yes Orthopedic Cardiac: Yes Chronic Edema/Swelling, High Cholesterol, Hypertension Physical Exam Vital Signs - First Documented 01/05/23 09:13 Temp 37.0 Pulse 90 Resp 18 B/P (MAP) 128/86 (100) Pulse Ox 97 O2 Delivery Room Air Capillary Refill : Height: '" Weight: lbs. oz. kg; 33.00 BMI Method: General Appearance: WD/WN, no apparent distress HEENT: PERRL/EOMI, pharynx normal Neck: non-tender, full range of motion, supple, normal inspection Respiratory: chest non-tender, lungs clear, normal breath sounds (other than mild upper airway transmitted congestion sounds), no respiratory distress, no accessory muscle use Cardiovascular: normal peripheral pulses, regular rate, rhythm Gastrointestinal: normal bowel sounds, soft, no pulsatile mass; No distended, No guarding, No rebound; tenderness (mild tenderness to upper abdominal wall muscles, worse with coughing) Extremities: normal range of motion, non-tender Neurologic/Psychiatric: alert, oriented x 3 Skin: normal color, warm/dry Progress/Results/Core Measures Suspected Sepsis SIRS Temperature: Pulse: Respiratory Rate: Blood Pressure / Mean: Laboratory Tests 01/05/23 09:56: Creatinine 1.11 Results/Orders Lab Results Laboratory Tests Test 01/05/23 09:56 Range/Units Sodium Level 137 135-145 MMOL/L Potassium Level 3.9 3.6-5.0 MMOL/L Chloride Level 103 98-107 MMOL/L Carbon Dioxide Level 23 21-32 MMOL/L Anion Gap 11 5-14 MMOL/L Blood Urea Nitrogen 16 7-18 MG/DL Creatinine 1.11 0.60-1.30 MG/DL Estimat Glomerular Filtration Rate 70 BUN/Creatinine Ratio 14 Glucose Level 129 H 70-105 MG/DL Calcium Level 9.3 8.5-10.1 MG/DL My Orders Orders - LYNN CALDERON MD Chest Pa/Lat (2 View) (01/05/23 09:28) Nursing Communication (Order) (01/05/23 09:55) Basic Metabolic Panel (01/05/23 09:55) Vital Signs/I&O 01/05/23 01/05/23 01/05/23 09:13 09:15 10:20 Temp 37.0 Pulse 90 88 Resp 18 B/P (MAP) 128/86 (100) 115/67 Pulse Ox 97 97 O2 Delivery Room Air Room Air Room Air Capillary Refill : Progress Note #1: Progress Note Potential diagnosis of pneumonia, upper respiratory infection with congestion and cough, hypokalemia, dehydration, nasal congestion, viral syndrome. On exam his oxygen saturation is 95 to 97% on room air and he is not working hard to breathe. His lungs themselves sound clear but he has some upper airway transmitted congestion sounds. He has been having some cramping on Tuesday night and takes 2 diuretics, furosemide and hydrochlorothiazide. Will obtain a two- view chest x-ray to evaluate his lungs to see if it looks like he was having more congestion or pneumonia than what they may have seen on Tuesday. Also will draw blood today to see what his basic metabolic panel shows to look for hyp okalemia or electrolyte imbalance that would cause cramping since he takes 2 diuretic medicines. Since he is on a steroid I feel like his blood count would not be helpful at this time because he would likely have an elevated white blood cell count as a result of steroids. We will look for hypokalemia, electrolyte imbalance, dehydration, acute kidney injury. Progress Note #2: Time: 09:41 Progress Note On my review and personal interpretation of his two-view chest x-ray he has no acute infiltrate. I did not appreciate any effusion. He has chronic cardiomegaly. Awaiting radiology overread. At 0946 I have reviewed the radiologist report on the two-view chest x-ray. They also did not see any acute infiltrate but felt he had some mild central vascular congestion and chronic cardiomegaly. X-ray was compared to previous films from April 2021. Progress Note #3: Time: 10:10 Progress Note The basic metabolic profile showed stable renal function with electrolytes in a normal range. His potassium was low normal at 3.9. He was not having any sig nificant electrolyte imbalance that would account for cough, cramping, shortness of breath. He had mild elevation of his glucose but he is on a steroid and is not fasting. Reassured patient and spouse that he appeared to have improving signs of pneumonia on his chest x-ray. Encouraged to try taking Mucinex or guaifenesin to help thin out his mucus and congestion. But he does need to drink extra fluids to make this work well. Also encouraged to continue taking the antibiotics until done. Provide a spacer to use with his inhaler to get more of the medicine down into his lungs. Check back through the clinic as needed for continued concerns When reviewing results and discharge plan with patient and family they requested a prescription be sent for the Mucinex. Sent a prescription to apothecary for the plain guaifenesin Mucinex 1200 mg p.o. every 12 hours for cough and congestion x7 days. Diagnostic Imaging Diagonstic Imaging: Xray Plain Films/CT/US/NM/MRI: chest Comments [facility] [place], [place] NAME: GWENDOLYN JOY [employer] REC#: [id number] PT STATUS: REG ER : 1950 PHYSICIAN: LYNN CALDERON MD ADMIT DATE: 01/05/23/ER FS Draft Date of Exam:01/05/23 CHEST PA/LAT (2 VIEW) INDICATION: Cough, shortness of breath, recent diagnosis of pneumonia. TECHNIQUE: Two view chest 9:36 AM CORRELATION STUDY: 04/17/2021 FINDINGS: Left-sided dual-chamber pacemaker. Heart size and mediastinum remain enlarged and prominent. Vasculature is slightly increased from prior. Coronary artery stent left heart border. No definitive infiltrate. Elevated right diaphragm. [place] screws right humeral head. IMPRESSION: 1. Cardiac enlargement without mild vascular congestion/edema. Dictated on workstation # [id number] Dict: 01/05/23941 Trans: 01/05/23943 [id number] Interpreted by: WILBERT REYES DO Electronically signed by: Reviewed: Reviewed by Me (I reviewed radiologist report at 0946) Departure Impression Primary Impression: Respiratory tract congestion with cough Disposition: HOME, SELF-CARE Condition: Stable Departure-Patient Inst. Decision time for Depature: 10:15 Referrals: AMINA MUNOZ APRN (PCP) Primary Care Physician [facility] (Family) Primary Care Physician Patient Instructions: Cough, Adult ED, How to Use a Spacer Add. Discharge Instructions: Consider taking Plain Mucinex or Guaifenesin medicine to help loosen cough and congestion. You need to drink at least 8 to 16 ounces of extra water each time you take one of the Mucinex pills to make it work most effectively. Your chest xray looks like the pneumonia is improving but it can take a few more days for your symptoms to improve as you are taking the antibiotics, steroid and using your inhaler. Finish out your course of antibiotics and medicine to help with your infection. Follow up with clinic for continued concerns. All discharge instructions reviewed with patient and/or family. Voiced understanding. Scripts Guaifenesin (Mucinex) 1,200 Mg Tab.er.12h 1200 MG PO Q12H for cough/congestion for 7 Days, #14 TAB 0 Refills Take with 8-16 ounces of extra water to help the medicine work. Prov: LYNN CALDERON MD 01/05/23 LYNN CALDERON MD Jan 05, 2023 09:39
--- NOTE | 2023-01-05 09:44 | Diagnostic Imaging Report ---
INDICATION: Cough, shortness of breath, recent diagnosis of pneumonia. TECHNIQUE: Two view chest 9:36 AM CORRELATION STUDY: 04/17/2021 FINDINGS: Left-sided dual-chamber pacemaker. Heart size and mediastinum remain enlarged and prominent. Vasculature is slightly increased from prior. Coronary artery stent left heart border. No definitive infiltrate. Elevated right diaphragm. [place] screws right humeral head. IMPRESSION: 1. Cardiac enlargement without mild vascular congestion/edema. Dictated by: Dictated on workstation # [id number]
[2023-01-05 10:08] LABS: CALCIUM 9.3 MG/DL (8.5-10.1); CREATININE SERUM 1.11 MG/DL (0.60-1.30); POTASSIUM 3.9 MMOL/L (3.6-5.0)
[2023-01-05 10:20] VITALS: BP 115/67
[2023-01-05] MEDS ORDERED: GUAI120013 PO (10:22)
== END 2023-01-05 10:20 | disposition home or self-care (01) ==
LOC: EDUNIT# 09:09 → ER FS 09:13
DX: J98.8 Other specified respiratory disorders (principal); E87.6 Hypokalemia; Z79.51 Long term (current) use of inhaled steroids
CPT/HCPCS: 36415; 71046; 80048